=== PATIENT | female | born 2000 | race Caucasian/White ===

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

== ENCOUNTER → 2018-06-22 | Outpatient (CLI) | payer BC, OTHER ==
--- NOTE | ~2018-06-22 | SLE ---
[facility] [place] [address] POLYSOMNOGRAPHY STUDY Name: LIN LOVETT Room #: REG [facility]#: [id number] Admission: 06/22/18 ������������������ Attend Phys: Arvind Rodriguez MD Discharge: ������������������ Date of : [birth year] Report #: [id number] THIS REPORT FOR: //name// CC: Arvind Price MD DATE OF SERVICE: 06/22/2018 ATTENDING PHYSICIAN: Dr. Alli Price. The patient is 18 years old who weighs 290 pounds with a BMI of 45.4. The patient's Teton score was 11. The patient is not on any sedative medications. Diagnostic sleep study was performed at [facility]. During the night study, the patient spent 471 minutes in bed and slept for 352 minutes with a sleep efficiency of 75%. Sleep latency was 9.5 minutes with a REM latency of 220 minutes. Overall, sleep architecture showed increased stage 1 sleep, normal stage 2 sleep, increased N3 sleep and reduced REM sleep, which was 13% of the total sleep time. During the night study, the patient had no apneas. There were only 2 hypopneas. The patient's apnea-hypopnea index for the entire night was only 0.3 per hour. There was no significant change seen during REM or supine sleep. EKG monitoring revealed an average heart rate of 74 beats per minute with a maximum of 114 beats per minute. No sustained arrhythmias were observed. PLMS were seen at an index of 9 per hour and 2 per hour caused EEG arousals. Nocturnal oximetry study revealed an average oxygen saturation of 94% with a lowest of 90%. No clinically significant desaturations of less than 90% were observed. Due to low AHI, the patient did not meet split night criteria for CPAP initiation. The patient also had a home sleep study performed earlier in 02/2018, and the patient did not have any clinically significant sleep disordered breathing. AHI also was 3.7 per hour at that time. IMPRESSION: 1. No clinically significant sleep disordered breathing. The patient's AHI for the entire night was only 0.3 per hour. The patient's previous home sleep study in February also did not reveal any significant sleep disordered breathing. [address] [address] POLYSOMNOGRAPHY STUDY Name: LIN LOVETT Room #: REG [facility]#: [id number] Admission: 06/22/18 ������������������ Attend Phys: Arvind Rodriguez MD Discharge: ������������������ Date of : [birth year] Report #: [id number] 2. No clinically significant nocturnal hypoxia. 3. 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 This does not need to be treated. RECOMMENDATIONS: 1. The patient did not meet the criteria for CPAP initiation. The patient has moderate subjective hypersomnia with an Teton score of 11. The patient's previous sleep study and this sleep study does not show any sleep disordered breathing. Consider ruling out other etiologies of hypersomnia such as narcolepsy or idiopathic hypersomnia and consider doing multiple sleep latency tests if clinically indicated. 2. Avoid any [employer] depressants. The patient's current list of medication does not include any benzodiazepines or narcotics 3. Weight loss is strongly advised. 4. Caution regarding driving until the patient's hypersomnia is resolved with other recommendations. ��������������������������������������������� ���������������������������������������� By: ��������������������������������������������� [id number] Arvind Rodriguez MD /nt
== END ==
LOC: SLEEPLAB 05-24 11:18
DX: G47.33 Obstructive sleep apnea (adult) (pediatric) (principal); G47.61 Periodic limb movement disorder